=== PATIENT | female | born 1960 | race Caucasian/White ===

== ENCOUNTER 2017-10-04 07:16 | Emergency (ER) | payer OTHER ==
[2017-10-04 07:35] VITALS: BP 146/60
--- NOTE | 2017-10-04 08:23 | UC ---
Edson Green Julia, scribed for Ricardo Torres MD on 10/04/17 at 0734 . Complaint Female HPI - HPI Summary HPI Summary: This patient is a 57 year old F presenting to [facility] with a chief complaint of bladder discomfort. She was prescribed Nitrofurantoin a week ago for UTI; however the cultures were negative. She felt better for two days, but symptoms have returned. Therefore she thought she had another UTI. She denies burning with urination, but has urinary frequency. She denies fever, chills, and back pain. Pt denies any pain. - History Of Current Complaint Stated Complaint: URINARY ISSUE Time Seen by Provider: 10/04/17 07:22 Hx Obtained From: Patient Onset/Duration: Lasting Days Timing: Intermittent Pain Intensity: 0 Associated Signs And Symptoms: Negative: Fever, Back Pain Related Hx: Similar Episode/Dx as: - UTI - Allergies/Home Medications Allergies/Adverse Reactions: Allergies Allergy/AdvReac Type Severity Reaction Status Date / Time No Known Allergies Allergy Verified 10/04/17 07:29 Home Medications: Home Medications Methimazole TAB* [Tapazole TAB*] 1 tab PO DAILY 10/04/17 [History Confirmed 05/12] Multivit-Min/Iron Fum/Folic AC [Efigj-Ahvjokv-Mpvwrcwe Tablet] 1 tab PO DAILY [History Confirmed 10/04/17] ZOLMitriptan [Zomig] 1 tab PO DAILY PRN 10/04/17 [History Confirmed 10/04/17] metroNIDAZOLE [Noritate] 1 applic TOPICAL DAILY 10/04/17 [History Confirmed 05/12] PMH/Surg Hx/FS Hx/Imm Hx Previously Healthy: Yes - Surgical History Surgical History: None - Family History Known Family History: Positive: Other - Brain CA - father Review of Systems Constitutional: Negative - fever, chills Genitourinary: Negative - dysuria, Frequency Musculoskeletal: Negative - back pain All Other Systems Reviewed And Are Negative: Yes Physical Exam - Summary Physical Exam Summary: VITAL SIGNS: Reviewed. GENERAL: Patient is a well developed and nourished female who is lying comfortable in the stretcher. Patient is not in any acute respiratory distress. HEAD AND FACE: Normocephalic EYES: PERRLA, EOMI x 2. EARS: Hearing grossly intact. MOUTH: Oropharynx within normal limits. NECK: Supple, trachea is midline, no adenopathy, no JVD, no carotid bruit. CHEST: Symmetric, no tenderness at palpation LUNGS: Clear to auscultation bilaterally. No wheezing or crackles. CVS: Regular rate and rhythm, S1 and S2 present, no murmurs or gallops appreciated. ABDOMEN: Soft, non-tender. Bowel sounds are normal. No abdominal abnormal pulsations. EXTREMITIES: Full ROM in all major joints, no edema, no cyanosis or clubbing. NEURO: Alert and oriented x 3. No acute neurological deficits. Speech is normal and follows commands. SKIN: Dry and warm Triage Information Reviewed: Yes Vital Signs: Initial Vital Signs Temp 98.5 F 10/04/17 07:29 Pulse 93 10/04/17 07:29 Resp 16 10/04/17 07:29 BP 146/60 10/04/17 07:29 Pulse Ox 100 10/04/17 07:29 Vital Signs Reviewed: Yes Complaint Female Dx - Course Course Of Treatment: This patient is a 57 year old F presenting to [facility] [place] with a chief complaint of bladder discomfort. She was prescribed Nitrofurantoin a week ago for UTI; however the cultures were negative. She felt better for two days, but symptoms have returned therefore she thought she had another UTI. She denies burning with urination, but has urinary frequency. She denies fever, chills, and back pain. Pt denies any pain. UA is negative at this time except for increased protein. UA did not show any type of infection. However because of symptoms, will send urine for urine cultures. At this time I will not prescribe any antibiotics. She was referred to see a Urologist and if symptoms worsen to go to the ED for further assessment. The patient was found to have increased BP in UC. The patient will follow up with PCP for better control of BP. I discussed all the findings and test results with the patient. Patient was instructed to return to the urgent care or go to ER immediately if any of the symptoms return or worsens. Plan of care was discussed with the patient, and patient understands and agrees. All questions were answered to patient satisfaction. There were no further complaints or concerns. - Differential Dx/Diagnosis Provider Diagnoses: dysuria Discharge - Sign-Out/Discharge Documenting (check all that apply): Discharge/Admit/Transfer - Discharge Plan Condition: Stable Disposition: HOME Patient Education Materials: Dysuria (ED) Referrals: Fermín George MD [Primary Care Provider] - 1 Week () Corby Barraza MD [Medical Doctor] - 2 Days Additional Instructions: FOLLOW UP WITH YOUR PRIMARY CARE PROVIDER WITHIN ONE WEEK FOR HIGH BLOOD PRESSURE NOTED TODAY. RETURN TO URGENT CARE OR THE ED FOR ANY WORSENING OR NEW SYMPTOMS. - Billing Disposition and Condition Condition: STABLE Disposition: HOME The documentation as recorded by the Edson abraham Julia accurately reflects the service I personally performed and the decisions made by Brian norris Walter, MD.
== END 2017-10-04 07:45 | disposition home or self-care (01) ==
LOC: UCEAST 07:16
DX: R30.0 Dysuria (principal)
CPT/HCPCS: 81003; 87086; 99211; G0463